=== PATIENT | male | born 1960 | race African-American/Black ===

== ENCOUNTER 2017-11-18 18:12 | Emergency (ER) | payer OTHER ==
[2017-11-18 20:50] LABS: #Basophils 0.1 thou/uL (0.0-0.2); #Eosinphils 0.6 thou/uL (0.0-0.7); #Lymphocytes 2.1 thou/uL (1.20-3.40); #Monocytes 0.5 thou/uL (0.11-0.59); #Neutrophils 3.1 thou/uL (1.40-6.50); %Basophils 1.2 % (0.0-1.0); %Lymphocytes 32.7 % (21.0-51.0); %Monocytes 7.5 % (0.0-10.0); %Neutrophils 48.6 % (42.0-75.0); Hemoglobin 10.3 g/dL (14.0-18.0); Mean Corpuscular HGB CONC 31.5 g/dL (32.0-36.0); Mean Corpuscular Hemoglobin 31.1 pg (27.0-31.0); Mean Corpuscular Volume 98.6 fl (80.0-94.0); Mean Platelet Volume 7.9 fL (7.4-10.4); Platelet Count 260 thou/uL (130-400); RBC Distribution Width 14.6 % (11.5-14.5); White Blood Cell (WBC) Count 6.3 thou/uL (4.8-10.8)
[2017-11-18 21:17] LABS: ALT (SGPT) 11 U/L (8-55); AST (SGOT) 18 U/L (5-34); Albumin 3.1 g/dL (3.5-5.0); Alkaline Phosphatase 106 U/L (40-150); Anion Gap 19 mmol/L (10-20); BUN (Urea Nitrogen) 39 mg/dL (8.4-25.7); Bilirubin, Total 0.4 mg/dL (0.2-1.2); Calc. Creatinine Clearance 0 mL/min (70-130); Calcium 8.9 mg/dL (7.8-10.44); Carbon Dioxide 23 mmol/L (22-29); Chloride 107 mmol/L (98-107); Estimated GFR-MDRD 12; Globulin 4.3 g/dL (2.4-3.5); Glucose 115 mg/dL (70-105); Potassium 4.5 mmol/L (3.5-5.1); Protein, Total 7.4 g/dL (6.0-8.3); Sodium 144 mmol/L (136-145)
== END 2017-11-18 21:39 ==
LOC: ERS 18:12
DX: Z02.89 Encounter for other administrative examinations (principal); E10.40 Type 1 diabetes mellitus with diabetic neuropathy, unspecified; I10 Essential (primary) hypertension; Z87.891 Personal history of nicotine dependence
CPT/HCPCS: 36415; 80053; 85025; 99283

== ENCOUNTER 2017-11-23 14:09 | Emergency (ER) | payer OTHER ==
--- NOTE | 2017-11-23 16:52 | RAD ---
AP CHEST: Indication: Sent from [facility] for emergency dialysis. Comparison: 05-23-16 FINDINGS: There is a right IJ dialysis catheter projecting in the region of the right atrium. There is cardiome pablito with pulmonary vascular congestion and perihilar interstitial and airspace opacities, suspicious for edema. No tony pleural effusion is evident. No pneumothorax is noted. IMPRESSION: Findings suspicious for volume overload. Continued follow up is recommended. POS: JACK
[2017-11-23 17:52] LABS: #Basophils 0.1 thou/uL (0.0-0.2); #Eosinphils 0.5 thou/uL (0.0-0.7); #Lymphocytes 1.9 thou/uL (1.20-3.40); #Monocytes 0.4 thou/uL (0.11-0.59); #Neutrophils 5.1 thou/uL (1.40-6.50); %Basophils 0.9 % (0.0-1.0); %Eosinophils 6.6 % (0.0-10.0); %Lymphocytes 23.8 % (21.0-51.0); %Monocytes 5.5 % (0.0-10.0); %Neutrophils 63.2 % (42.0-75.0); Hemoglobin 9.6 g/dL (14.0-18.0); Mean Corpuscular HGB CONC 31.4 g/dL (32.0-36.0); Mean Corpuscular Hemoglobin 30.8 pg (27.0-31.0); Mean Corpuscular Volume 98.1 fl (80.0-94.0); Mean Platelet Volume 7.5 fL (7.4-10.4); Platelet Count 274 thou/uL (130-400); RBC Distribution Width 14.8 % (11.5-14.5); Red Blood Cell (RBC) Count 3.11 mill/uL (4.70-6.10); White Blood Cell (WBC) Count 8.1 thou/uL (4.8-10.8)
[2017-11-23 18:10] LABS: Anion Gap 17 mmol/L (10-20); BUN (Urea Nitrogen) 61 mg/dL (8.4-25.7); Calc. Creatinine Clearance 0 mL/min (70-130); Carbon Dioxide 14 mmol/L (22-29); Chloride 117 mmol/L (98-107); Estimated GFR-MDRD 10; Glucose 109 mg/dL (70-105); Potassium 4.8 mmol/L (3.5-5.1); Sodium 143 mmol/L (136-145)
[2017-11-23 20:38] LABS: Troponin I 0.033 ng/mL (< 0.028)
== END 2017-11-23 20:45 | disposition home or self-care (01) ==
LOC: ERS 14:09
DX: I12.0 Hypertensive chronic kidney disease with stage 5 chronic kidney disease or end stage renal disease (principal); E10.22 Type 1 diabetes mellitus with diabetic chronic kidney disease; N18.6 End stage renal disease; E10.40 Type 1 diabetes mellitus with diabetic neuropathy, unspecified; F31.9 Bipolar disorder, unspecified; F20.9 Schizophrenia, unspecified; F17.200 Nicotine dependence, unspecified, uncomplicated; Z79.899 Other long term (current) drug therapy
CPT/HCPCS: 36415; 71045; 80048; 84484; 85025; 93005

== ENCOUNTER 2018-02-23 20:32 | Observation (INO) | payer OTHER ==
[2018-02-23 21:07] LABS: Base Excess-Venous -1.5 mmol/L (0 (+/- 2.5)); Bicarbonate (HCO3v) 24.7 mmol/L (1.0-85.0); CO2 Tension (PvCO2) 46.6 mmHg (41.0-51.0); Calcium, Ionized 1.02 mmol/L (1.12-1.32); Hemoglobin - Calc 11.1 g/dL (12.0-18.0); O2 Tension (PvO2) 34.8 mmHg (35.0-45.0); Potassium 4.3 mmol/L (3.4-4.7); T. Carbon Dioxide 26.1 mmol/L (1.0-85.0); pH (Venous) 7.331 (7.35-7.45); vO2 Saturation-calc 62.2 % (94-98)
[2018-02-23 21:10] LABS: #Eosinphils 0.2 thou/uL (0.0-0.7); #Monocytes 0.6 thou/uL (0.11-0.59); #Neutrophils 4.4 thou/uL (1.40-6.50); %Basophils 0.3 % (0.0-1.0); %Eosinophils 3.4 % (0.0-10.0); %Lymphocytes 15.6 % (21.0-51.0); %Monocytes 8.9 % (0.0-10.0); %Neutrophils 71.9 % (42.0-75.0); Hemoglobin 10.3 g/dL (14.0-18.0); Mean Corpuscular HGB CONC 31.4 g/dL (32.0-36.0); Mean Corpuscular Volume 98.7 fl (80.0-94.0); Mean Platelet Volume 8.5 fL (7.4-10.4); Platelet Count 172 thou/uL (130-400); RBC Distribution Width 15.3 % (11.5-14.5); Red Blood Cell (RBC) Count 3.34 mill/uL (4.70-6.10); White Blood Cell (WBC) Count 6.1 thou/uL (4.8-10.8)
[2018-02-23 21:30] LABS: ALT (SGPT) 34 U/L (8-55); AST (SGOT) 32 U/L (5-34); Alkaline Phosphatase 243 U/L (40-150); Anion Gap 16 mmol/L (10-20); BUN (Urea Nitrogen) 30 mg/dL (8.4-25.7); Bilirubin, Total 0.4 mg/dL (0.2-1.2); CK (CPK) 139 U/L (30-200); Calc. Creatinine Clearance 0 mL/min (70-130); Calcium 8.2 mg/dL (7.8-10.44); Carbon Dioxide 23 mmol/L (22-29); Chloride 101 mmol/L (98-107); Estimated GFR-MDRD 15; Globulin 3.5 g/dL (2.4-3.5); Glucose 386 mg/dL (70-105); Potassium 4.4 mmol/L (3.5-5.1); Protein, Total 6.5 g/dL (6.0-8.3); Sodium 136 mmol/L (136-145)
[2018-02-23 21:35] LABS: CKMB 4.1 ng/mL (0-6.6); Troponin I 0.037 ng/mL (< 0.028)
[2018-02-23] MEDS ORDERED: Morphine 4 MG/ML VIAL ONE (21:55)
--- NOTE | 2018-02-23 22:07 | RAD ---
FRONTAL VIEW CHEST: 02/23/18 COMPARISON: 11/23/17 INDICATION: Chest pain. FINDINGS: Defibrillator pad overlies the right chest limiting detail. There is enlargement of the cardiac silho uette and pulmonary vascular congestion with bilateral interstitial and alveolar opacity. No obvious effusion or discrete pneumothorax. Numerous extrinsic artifacts limit detail. IMPRESSION: Findings indicate cardiogenic edema. Correlate clinically. Evaluation is limited by the degree of ext rinsic artifact. Followup may be obtained as necessary. POS: DELON
[2018-02-23] MEDS ORDERED: HYDROcodone/Acetaminophen 5/325 mg Tablet ONE (23:33)
[2018-02-24 00:01] LABS: Troponin I 0.044 ng/mL (< 0.028)
[2018-02-24] MEDS ORDERED: diphenhydrAMINE 50 MG/ML VIAL ONE (00:50)
[2018-02-24] MEDS ORDERED: Calcium Carbonate 500 MG ChewTAB PO PRN (01:35)
[2018-02-24] MEDS ORDERED: Acetaminophen 325 MG TAB PO PRN (01:35)
[2018-02-24] MEDS ORDERED: HumaLOG 300 UNITS/3 ML VIAL SC PRN ×2 (01:35→19:26)
[2018-02-24] MEDS ORDERED: Dextrose 50% Abboject 50 ML SYRINGE SLOW IVP PRN (01:35)
[2018-02-24] MEDS ORDERED: Dextrose 5% in Water 1,000 ML IV PRN (01:35)
[2018-02-24] MEDS ORDERED: Enoxaparin Sodium 30 MG/0.3 ML SYRINGE SC SCH (01:35)
[2018-02-24] MEDS ORDERED: Nitroglycerin 0.4 MG TAB (25 Tab Bottle) PO PRN (01:35)
[2018-02-24 01:46] VITALS: BMI 22.4
--- NOTE | 2018-02-24 01:58 | HP ---
DATE OF ADMISSION: 02/24/2018 CHIEF COMPLAINT: Chest pain. HISTORY OF PRESENT ILLNESS: This is a 57-year-old -[place] male who had living in [facility] [place] all of his time in few days. Patient has a known history of type 2 diabetes mellitus and histor y of end-stage renal disease, on hemodialysis. He had a recent right Port-A-Cath removed by Dr. Alejandrina stevenson yesterday and, following which he was taken back to the alf and he was having some severe rolo sea and was throwing up and in the process, he developed some chest pain. The chest pain was suspect ed from nausea and he was brought to the ER for further evaluation. Initially, the patient had eleva markos troponins, but because of end-stage renal disease initially, it was thought that it could be rela markos to the poor renal functions, but then the repeat EKG was normal, but the patient continues to hav e some pain in the chest, which is more from the surgical site and then across towards the left side of the chest. He also has swelling of his lips and also swelling of his right eye which according to him is new and also complains of some itching generalized. He denies having anything allergic to, b ut he says that he has been getting generic drugs at the alf, which are not the same brand as he is on at home, so at this time, patient did not have any breathing problems. No nausea, no vomiting at this time. PAST MEDICAL HISTORY: 1. End-stage renal disease, on hemodialysis. 2. Type 2 diabetes mellitus. PAST SURGICAL HISTORY: The patient has a right [id number] amputation, history of hernia repair x 4, left first toe amputation, left fifth finger amputation. ALLERGIES: None. SOCIAL HISTORY: The patient was a smoker in the past. No history of alcohol, no history of illicit drug use. He currently lives in a alf completing his term. REVIEW OF SYSTEMS: All 12 systems reviewed with the patient thoroughly and found to be negative at t his time except those described in HPI. The following complete review of systems was negative, unles s otherwise mentioned in the HPI or below: Constitutional: Weight loss or gain, sense of well-being , ability to conduct usual activities, exercise tolerance. Skin/Breast: Rash, itching, changes in h air growth or loss, nail changes, breast lumps, tenderness, swelling, nipple discharge. Eyes: Visio n, double vision, tearing, blind spots, pain. ENT/Mouth: Headaches (location, time of onset, durati on, precipitating factors), vertigo, lightheadedness, injury. Vision, double vision, tearing, blind s pots, pain, nose bleeding, colds, obstruction, discharge, dental difficulties, gingival bleeding, den tures, neck stiffness, pain, tenderness, masses in thyroid or other areas. Cardiovascular: Precordi al pain, substernal distress, palpitations, syncope, dyspnea on exertion, orthopnea, nocturnal paroxy smal dyspnea, edema, cyanosis, hypertension, heart murmurs, varicosities, phlebitis, claudication. R espiratory: Pain, shortness of breath, wheezing, stridor, cough, hemoptysis, fever or night sweats. Gastrointestinal: Poor appetite, dysphagia, indigestion, abdominal pain, heartburn, eructation, rolo sea, vomiting, hematemesis, jaundice, constipation, or diarrhea, abnormal stools (chencho-colored, tarry , bloody, greasy, foul smelling), flatulence, hemorrhoids, recent changes in bowel habits. Genitouri nary: Urgency, frequency, dysuria, nocturia, hematuria, polyuria, oliguria, unusual (or change in) c olor of urine, stones, hesitancy, change in size of stream, dribbling, acute retention or incontinenc e, libido, potency. Musculoskeletal: Pain, swelling, redness or heat of muscles or joints, limitati on, of motion, muscular weakness, atrophy, cramps. Neurologic/Psychiatric: Convulsions, paralyses, tremor, incoordination, parasthesias, difficulties with memory of speech, sensory or motor disturbanc es, or muscular coordination (ataxia, tremor), emotional problems, anxiety, depression, previous psyc hiatric care, unusual perceptions, hallucinations. Allergy/Immunologic: Skin rash, anemia, bleeding tendency, polydipsia, polyuria, intolerance to heat or cold. FAMILY HISTORY: No significant family history of coronary artery disease and this has been reviewed thoroughly. HOME MEDICATIONS: Aspirin 81 mg daily, pentoxifylline 400 mg p.o. t.i.d., Coreg 25 mg p.o. b.i.d., m etformin 1000 mg p.o. b.i.d., naproxen 500 mg p.o. b.i.d., atorvastatin 40 mg p.o. at bedtime, Lasix 40 mg p.o. b.i.d., gabapentin 600 mg p.o. b.i.d., insulin 40 units subcutaneously daily, lisinopril 4 0 mg daily, trazodone 50 mg p.o. at bedtime. PHYSICAL EXAMINATION: VITAL SIGNS: Blood pressures are 140/88, heart rate is 80, respiratory rate is 18, saturation 98%. HEENT: Atraumatic, normocephalic. PERRLA. Extraocular movements were intact. Patient has swollen lips and a swollen right eye. No evidence of any tongue swelling or any soft tissue swelling in the oral cavity was noted. CARDIOVASCULAR: S1, S2 normal. No murmurs, rubs or gallops. LUNGS: Bilateral air entry was equal. No wheezing, no crackles. ABDOMEN: Soft, nontender. No guarding or rebound tenderness. Bowel sounds normal. MUSCULOSKELETAL: No calf tenderness. No pedal edema. No joint tenderness, no joint swelling. SKIN: No cyanosis or erythema, no rash, no pallor. NEUROLOGIC: Cranial examination II-XII intact. No focal deficits were noted. PSYCHIATRIC: No signs of suicidal ideation. No signs of daniel. NECK: No thyromegaly. No JVD was noted. LABORATORY DATA: WBC 6.1, hemoglobin 10.3, hematocrit 32.9, platelets of 172. Sodium 137, potassium 4.4, chloride 101, bicarb 23, BUN 30, creatinine is 4.84, blood sugar is 386. Troponin 0.037. Ches t x-ray was done was unremarkable. No evidence of any pneumonia. ASSESSMENT: 1. Acute coronary syndrome. 2. Non-ST elevation myocardial infarction. 3. End-stage renal disease on hemodialysis. 4. Type 2 diabetes mellitus, hyperglycemia. 5. Angioedema likely allergic reaction to drugs. PLAN: 1. Plan is to closely monitor this patient. We will plan for a Cardiology consult as the patient de veloped bradycardia according to the ER physician and his heart rate went down to almost 35-40s, so h is Coreg has been held at this time and patient has a persistent elevation of the troponins. At this time, we will consult Cardiology and do a 2D echo to look for any wall motion abnormality. 2. The patient has end-stage renal disease, on hemodialysis. We will continue the hemodialysis shalom . Dr. Melendez is aware of the patient being here. 3. The patient has evidence of angioedema. I do not know the reason for the allergy, either it coul d be a food allergy or it could be allergy to a generic drug, which he was getting at alf, so at thi s time, we will start the patient on Benadryl 50 mg IV q.8 hours and also start him on Solu-Medrol 40 mg IV q.8 hours. 4. The patient has type 2 diabetes mellitus. We will closely monitor the blood sugars as he will be on steroids. We will plan to keep the blood sugar between 140-180. 5. End-stage renal disease, on hemodialysis. 6. Deep venous thrombosis prophylaxis. The patient will be on Lovenox 30 mg subcutaneously daily. I spent 75 minutes with this patient.
[2018-02-24] MEDS: diphenhydrAMINE 50 MG/ML VIAL IVP SCH ×3 (02:09→16:24)
[2018-02-24 02:12] LABS: #Eosinphils 0.4 thou/uL (0.0-0.7); #Monocytes 0.7 thou/uL (0.11-0.59); #Neutrophils 6.4 thou/uL (1.40-6.50); %Basophils 0.4 % (0.0-1.0); %Eosinophils 4.2 % (0.0-10.0); %Lymphocytes 11.4 % (21.0-51.0); %Monocytes 8.2 % (0.0-10.0); %Neutrophils 75.8 % (42.0-75.0); Hemoglobin 10.5 g/dL (14.0-18.0); Mean Corpuscular HGB CONC 31.4 g/dL (32.0-36.0); Mean Corpuscular Hemoglobin 31.1 pg (27.0-31.0); Mean Corpuscular Volume 98.9 fl (80.0-94.0); Platelet Count 172 thou/uL (130-400); RBC Distribution Width 15.3 % (11.5-14.5); Red Blood Cell (RBC) Count 3.39 mill/uL (4.70-6.10); White Blood Cell (WBC) Count 8.4 thou/uL (4.8-10.8)
[2018-02-24 02:36] LABS: Troponin I 0.058 ng/mL (< 0.028)
[2018-02-24 02:41] LABS: Anion Gap 14 mmol/L (10-20); BUN (Urea Nitrogen) 31 mg/dL (8.4-25.7); Calc. Creatinine Clearance 19 mL/min (70-130); Calcium 8.3 mg/dL (7.8-10.44); Carbon Dioxide 20 mmol/L (22-29); Cardiac Risk 2.5 (Less than 4.5); Chloride 102 mmol/L (98-107); Cholesterol 112 mg/dl (< 200 Desired); Estimated GFR-MDRD 15; Glucose 282 mg/dL (70-105); HDL Cholesterol 45 mg/dL (>60 Neg Risk); LDL Cholesterol, Calculated 57 mg/dL; Potassium 4.3 mmol/L (3.5-5.1); Sodium 132 mmol/L (136-145); Triglycerides 48 mg/dL (Less than 150)
[2018-02-24] MEDS ORDERED: Aspirin 81 mg Enteric Coated Tablet PO SCH (03:45)
[2018-02-24] MEDS: HYDROcodone/Acetaminophen 5/325 mg Tablet PO PRN ×3 (03:54→20:09)
[2018-02-24] MEDS: methylPREDNISolone Sod Succ/PF 125 MG/2 ML VIAL IVP SCH ×4 (05:12→23:51)
[2018-02-24 06:12] LABS: Troponin I 0.077 ng/mL (< 0.028)
[2018-02-24] MEDS ORDERED: Furosemide 20 MG TAB PO SCH (07:30)
[2018-02-24] MEDS ORDERED: Regadenoson 0.4 MG/5 ML SYRINGE ONE (08:47)
[2018-02-24] MEDS ORDERED: Lisinopril 20 MG TAB PO SCH (09:00)
[2018-02-24] MEDS ORDERED: Gabapentin 300 MG CAP PO SCH (09:00)
[2018-02-24] MEDS ORDERED: Carvedilol 25 MG TAB PO SCH ×2 (09:00→17:00)
[2018-02-24] MEDS ORDERED: NIFEdipine XL 60 MG TAB PO SCH (09:00)
[2018-02-24] MEDS ORDERED: Aspirin 325 MG TAB PO SCH (09:00)
[2018-02-24] MEDS ORDERED: hydrALAZINE 20 MG/ML VIAL SLOW IVP PRN (09:02)
[2018-02-24] MEDS ORDERED: Carvedilol 6.25 MG TAB PO SCH (09:15)
[2018-02-24] MEDS: Insulin Detemir 100 UNITS/ML 40 UNITS in Pre-Filled Syringe 1 EACH SC SCH (10:23)
--- NOTE | 2018-02-24 13:28 | NM ---
NUCLEAR MEDICINE CARDIAC PERFUSION EXAMINATION WITH EJECTION FRACTION: HISTORY: A 57-year-old male with chest pain, diabetes, hypertension, and dyslipidemia. COMPARISON: None. TECHNIQUE: A single day nuclear medicine cardiac perfusion examination was performed. Rest images were obtained using 9 millicuries of technetium 99m sestamibi. Stress images were obtained using 32 millicuries o f technetium 99m sestamibi and Lexiscan. FINDINGS: Tomographic images show no fixed or reversible perfusion defects. Gated SPECT images show normal wal l motion with an ejection fraction of 56%. EDV is 194 mL. LHR is 0.4. TID is 1.0. IMPRESSION: No evidence of ischemia. POS: JACK
[2018-02-24] MEDS: Furosemide 80 MG TAB PO SCH ×2 (13:51→22:33)
[2018-02-24] MEDS: Gabapentin 300 MG CAP PO SCH ×2 (14:06→22:33)
[2018-02-24] MEDS: Famotidine 20 MG TAB PO SCH (14:06)
[2018-02-24] MEDS: Cholestyramine/Aspartame 4 gm Packet PO SCH ×2 (14:06→22:35)
[2018-02-24] MEDS: Lisinopril 20 MG TAB PO SCH ×2 (14:11→22:33)
[2018-02-24] MEDS ORDERED: Carvedilol 3.125 MG TAB PO SCH (17:00)
[2018-02-24 18:50] LABS: Glucose Accucheck Confirmation 737 mg/dl (70-105)
--- NOTE | 2018-02-24 19:24 | CON ---
DATE OF CONSULTATION: 02/24/2018 CONSULTING PHYSICIAN: Nora Beal M.D. REQUESTING PHYSICIAN: Sean Cespedes M.D. REASON FOR CONSULTATION: The need for maintenance hemodialysis. IMPRESSION: 1. End-stage renal disease, hemodialysis dependent on a Thursday, Thursday, Thursday schedule. 2. Bradycardia, likely due to medication, carvedilol. PLAN: 1. The patient to be dialyzed in accordance with the schedule today with ultrafiltration as tolerate d by hemodynamics. 2. Discontinue carvedilol and whenever the heart rate comes up to resume this medication at a much l ower dose. HISTORY OF PRESENT ILLNESS: History is that of a 57-year-old gentleman with end-stage renal disease, hemodialysis dependent on a Thursday, Thursday, Thursday, who was noted to be hypotensive and bradycard ic at the intermediate, sent over to the ER for evaluation where patient did complain of chest discomfort wit h indeterminant range of troponin. Decision was then taken to admit this patient for further managem ent. The need for maintenance hemodialysis necessitated renal consultation. PAST MEDICAL HISTORY: Significant for end-stage renal disease, type 2 diabetes, and hypertension. MEDICATIONS: Reviewed and as documented on [employer]. ALLERGIES: No known drug allergies. SOCIAL HISTORY: Smoker in the past. No alcohol, no illicit drug use. Patient currently incarcerate d. REVIEW OF SYSTEMS: As documented in the body of the history. All the other systems were reviewed an d found not to be significantly related to presenting illness. PHYSICAL EXAMINATION: GENERAL: The patient was found not to be in any obvious distress, noted with the following. VITAL SIGNS: Afebrile, temperature 99.1, pulse 64, respiratory rate of 20, blood pressure of 207/93. HEENT: Unremarkable. Moist oral mucosa. NECK: Supple, no conjunctival injection or icterus. CARDIOVASCULAR SYSTEM: First and second heart sounds were heard. RESPIRATORY SYSTEM: Clear to auscultation. DIGESTIVE SYSTEM: Revealed a benign abdomen with positive bowel sounds. EXTREMITIES: No peripheral edema. SKIN: No new gross rash. LYMPHATICS: No peripheral lymphadenopathy. SUMMARY: A 57-year-old gentleman with end-stage renal disease, hemodialysis dependent, who presented here hypotensive and bradycardic. Thank you for this consultation. We will follow with you.
[2018-02-24] MEDS ORDERED: HumaLOG 300 UNITS/3 ML VIAL SC SCH (19:30)
[2018-02-24] MEDS ORDERED: Atorvastatin Calcium 40 MG TAB PO SCH (21:00)
[2018-02-24] MEDS ORDERED: traZODone HCl 50 MG TAB PO SCH (21:00)
[2018-02-24 21:08] LABS: Glucose 431 mg/dL (70-105)
[2018-02-24] MEDS: NIFEdipine XL 60 MG TAB PO SCH (22:34)
--- NOTE | 2018-02-24 23:46 | CON ---
DATE OF CONSULT: HISTORY: The patient is a 57-year-old gentleman with a history of apparently a myocardial infarction who presented after developing weakness and chest discomfort after having a catheter removed. The patient states he previously suffered a myocardial infarction. He states he underwent a cardiac catheterization. The patient was admitted here in May of 2009. He was found to have a dilated cardiomyopathy with ejection fraction of 20-25%. He was placed on lisinopril and Coreg. The patient presented yesterday after having a hemodialysis catheter removed while subsequently developed nausea and chest discomfort. He states the chest discomfort was associated with weakness. The patient denies having any present chest discomfort. PAST MEDICAL HISTORY: 1. Cardiomyopathy. 2. Diabetes mellitus. 3. Hypertension. 4. End-stage renal disease. 5. Cirrhosis. 6. Neuropathy. PAST SURGICAL HISTORY: Hernia surgery x4. Left finger amputation, and BKA . SOCIAL HISTORY: Long history of tobacco abuse. ALLERGIES: He has no known drug allergies. FAMILY HISTORY: No strong family history of coronary artery disease. REVIEW OF SYSTEMS: Notable for leg discomfort. MEDICATIONS ON ADMISSION: See nursing list. PHYSICAL EXAMINATION: GENERAL: This is an anxious gentleman Blood pressure 202/87, heart rate was 67 NECK: Full. LUNGS: Clear to auscultation. HEART: Regular rate and rhythm, normal S1, S2. ABDOMEN: Distended. EXTREMITIES: No edema. His extremities showed status post BKA. NEUROLOGIC: Nonfocal. LABORATORY RESULTS: White blood count 8.4, hemoglobin 10.5, hematocrit 33.6, platelets 172. Sodium 132, potassium 4.3, chloride 102, bicarbonate 20, BUN 31, creatinine 4.78. Troponin was 0.077. His EKG revealed marked sinus bradycardia with a RSR prime suggestive of right ventricular conduction delay. IMPRESSION: 1. Atypical chest pain. 2. Hypertension. 3. Diabetes. 4. End-stage renal disease. 5. Marked bradycardia. 6. History of a cardiomyopathy. This gentleman presents with atypical chest pain. His EKG showed marked bradycardia. He was on a high dose of carvedilol. He underwent a stress test today which revealed no evidence of ischemia. From a cardiac standpoint, I would use lower dose Coreg and increase the dose of his nifedipine to better control his blood pressure. We will follow this patient with you through his hospitalization. VANESSA
[2018-02-25] MEDS: diphenhydrAMINE 50 MG/ML VIAL IVP SCH ×2 (01:04→09:11)
[2018-02-25] MEDS: methylPREDNISolone Sod Succ/PF 125 MG/2 ML VIAL IVP SCH (05:38)
[2018-02-25] MEDS: Lisinopril 20 MG TAB PO SCH (09:08)
[2018-02-25] MEDS: NIFEdipine XL 60 MG TAB PO SCH (09:08)
[2018-02-25] MEDS: Gabapentin 300 MG CAP PO SCH (09:08)
[2018-02-25] MEDS: Famotidine 20 MG TAB PO SCH (09:08)
[2018-02-25] MEDS: Furosemide 80 MG TAB PO SCH (09:09)
[2018-02-25] MEDS: Cholestyramine/Aspartame 4 gm Packet PO SCH (09:09)
[2018-02-25] MEDS: HumaLOG 300 UNITS/3 ML VIAL SC PRN ×2 (09:09→12:15)
--- NOTE | 2018-02-25 10:24 | PRG ---
DATE OF SERVICE: 02/25/2018 The patient was seen and examined. PHYSICAL EXAMINATION: VITAL SIGNS: Afebrile, temperature 98.5, pulse 56, respiratory rate of 18, O2 saturation 100% with b lood pressure 150/75. HEENT: Unremarkable. Moist oral mucosa. Neck was supple, no conjunctival injection or icterus. CARDIOVASCULAR: First and second heart sounds were heard. RESPIRATORY: Clear to auscultation. DIGESTIVE: Revealed a benign abdomen with positive bowel sounds. EXTREMITIES: No peripheral edema. SKIN: No new gross rash. LYMPHATICS: No peripheral lymphadenopathy. LABORATORY INVESTIGATION: Showed severe elevated blood sugar with a blood sugar around that ev entually were reported as greater than 444 as of the last check. IMPRESSION: 1. End-stage renal disease. He tolerated dialysis very well yesterday. 2. Sinus bradycardia in the context of carvedilol usage. 3. Severe hyperglycemia in the context of diabetes mellitus as well as a steroid usage. PLAN: 1. Discontinue steroids. 2. No indication for hemodialysis. 3. From the renal standpoint, the patient is good for discharge.
[2018-02-25] MEDS: Insulin Detemir 100 UNITS/ML 40 UNITS in Pre-Filled Syringe 1 EACH SC SCH (10:56)
[2018-02-25 11:18] VITALS: BP 125/61; TEMP 99.1
[2018-02-25] MEDS ORDERED: Carvedilol 6.25 MG TAB PO SCH (17:00)
--- NOTE | 2018-02-26 19:19 | DIS ---
DATE OF ADMISSION: 02/24/2018 DATE OF DISCHARGE: 02/25/2018 PRIMARY CARE PHYSICIAN: Era physician in [place]. He is currently at the [facility]. DISCHARGE DIAGNOSES: 1. Symptomatic bradycardia. 2. Possible cardiogenic chest pain. 3. History of end-stage renal disease, on hemodialysis. 4. Elevated troponin, likely demand ischemia. 5. Essential hypertension, uncontrolled. 6. Diabetes mellitus type 2, uncontrolled, insulin-dependent. CONSULTATIONS: 1. Dr. Alex Blanc, on 02/24/2018. 2. Dr. Nora Beal, on 02/24/2018. PROCEDURES PERFORMED: 1. Echocardiogram done on 02/24/2018 that showed an ejection fraction of 40% to 45%, mildly dilated LA, mildly increased LV size, mild MR, mild to moderate TR, RVSP is elevated, and a very localized sm all pericardial effusion. 2. Nuclear stress test 02/24/2018 that showed no evidence of ischemia and no EKG changes. HISTORY AND PHYSICAL: Mr. Schmidt is a 57-year-old -[place] male, currently at the [facility] for another 5-6 days, who has been started on dialysis recently. He has been seeing Dr. Jose Carlos hurst. He had his PermCath removed. That night and the next day, the patient developed nausea an d vomiting and just was not feeling good and developed some chest pain. He presented to the [facility] for evaluation. Troponin was elevated, but the EKG was normal. He had some swelling of his lips and right eye; they thought it might be new, so he was sent here for further workup and chintan luation. On arrival here, his biomarkers were slightly more elevated, but still in the indeterminate range. W e are called for admission. HOSPITAL COURSE: The patient is seen and examined by Dr. Cespedes, he consulted Cardiology for possible symptomatic bradycardia for heart rate that was in the 30s to 40s. Coreg is being held. He was jaziel karen on the observation floor in observation. Dr. Nora Beal was contacted for need for poss ible hemodialysis. The patient was taken to dialysis later that day on 02/24/2018, serial cardiac biomarkers slowly incr eased and then normalized and decreased. Off of his Coreg, his bradycardia resolved and he was decre ased down to 6.25 mg of Coreg b.i.d. and increased on his nifedipine to 60 b.i.d. Sugars due to the initial Solu-Medrol for possible allergic reaction caused the sugars to spike a lot of control up to 737 by the evening of 02/24; however, when that was discontinued, his sugars came b ack down to the 300s. He was stable for discharge with the followup with the [facility]. PHYSICAL EXAMINATION: The patient was seen and examined on the day of discharge. Discharge plan and disposition was discussed with the patient and the guard [id number] at the bedside. DISCHARGE MEDICATIONS: 1. Nifedipine 60 mg p.o. b.i.d. 2. Aspirin 81 mg daily. 3. Atorvastatin 40 mg p.o. at bedtime. 4. Carvedilol 6.25 mg p.o. b.i.d. 5. Lasix 80 mg b.i.d. 6. Neurontin 600 mg p.o. b.i.d. 7. Humalog sliding scale. 8. Levemir 40 units subcu q.a.m. 9. Lisinopril 20 mg p.o. b.i.d. 10. Protonix 40 mg b.i.d. 11. Pentoxifylline 400 mg p.o. b.i.d. 12. Trazodone 50 mg p.o. at bedtime. DISCHARGE CONDITION: Stable. DISPOSITION: Being discharged back to [facility]. The patient has 6 more days until he is r eleased and returns to [place] to his regular doctors. FOLLOWUP APPOINTMENTS: Primary care physician at the [facility] and his primary care physician in [facility] once he is released. DISCHARGE ACTIVITY: Per cardiopulmonary limits. DISCHARGE DIET: Heart healthy diabetic diet recommended. Double portions requested and ordered.
== END 2018-02-25 13:22 | disposition home or self-care (01) ==
LOC: EEVIPCON 20:32 → ERS 20:32 → 2SW 02-24 01:28
PROVIDERS: ADMIT Family Medicine; ATTEND Family Medicine
DX: R07.89 Other chest pain (principal); R00.1 Bradycardia, unspecified; I12.0 Hypertensive chronic kidney disease with stage 5 chronic kidney disease or end stage renal disease; E11.22 Type 2 diabetes mellitus with diabetic chronic kidney disease; N18.6 End stage renal disease; I42.9 Cardiomyopathy, unspecified; E11.40 Type 2 diabetes mellitus with diabetic neuropathy, unspecified; K74.60 Unspecified cirrhosis of liver; I25.2 Old myocardial infarction; F17.200 Nicotine dependence, unspecified, uncomplicated; Z79.84 Long term (current) use of oral hypoglycemic drugs; Z79.82 Long term (current) use of aspirin; Z79.899 Other long term (current) drug therapy; Z99.2 Dependence on renal dialysis; Z98.890 Other specified postprocedural states
CPT/HCPCS: 36415; 36416; 71045; 78452; 80048; 80053; 80061; 82330; 82553; 82803; 82947; 83605; 84484; 85025; 90935; 93005; 93017; 93306; 96360; 96374; 96375; 96376; 99406; A4216; A9500; G0257; G0378; J0360; J1200; J1610; J1815; J2270; J2785; J2930